=== PATIENT | female | born 1965 | race Caucasian/White ===

== ENCOUNTER → 2016-11-05 | Outpatient (CLI) | payer MEDICAID ==
[~2016-11-05] MED LIST: CYCL1TAB29 PO; GABA800T PO; HYDR-3578 PO; LISI-515 PO; MORP1CAP79 PO; MORP1CAP82 PO; NAPR500 PO; TEGR200T PO; ZOCO40TA PO
[2016-11-05 12:15] LABS: AUTOMATED NEUTROPHIL # 2.2 TH/MM3 (1.8-7.7); EOSINOPHIL % 0.8 % (0.0-4.0); HEMATOCRIT 35.2 % (35.0-46.0); HEMO FLAGS DIFF FINAL; LYMPH % 31.4 % (9.0-44.0); LYMPHOCYTE # 1.3 TH/MM3 (1.0-4.8); MEAN CELL VOLUME 90.5 FL (80.0-100.0); MEAN CORPUSCULAR HEMOGLOBIN 29.5 PG (27.0-34.0); MEAN CORPUSCULAR HGB CONC 32.7 % (32.0-36.0); MONO % 11.3 % (0.0-8.0); NEUT % 55.5 % (16.0-70.0); PLATELET COUNT 255 TH/MM3 (150-450); RED BLOOD COUNT 3.89 MIL/MM3 (4.00-5.30); RED CELL DISTRIBUTION WIDTH 11.6 % (11.6-17.2)
--- NOTE | 2016-11-06 13:39 | EKG ---
Date Performed: 11/05/2016 Time Performed: 11:55:08 PTAGE: 51 years EKG: Sinus rhythm with borderline 1st degree A-V block. Borderline ECG Compared to prior tracing no significant change PREVIOUS TRACING : 05/10/2014 12.31 DOCTOR: Pb Bolton Interpretating Date/Time 11/06/2016 13:35:37
== END ==
LOC: PHPRE 11:04
PROVIDERS: ATTEND Orthopaedic Surgery
DX: Z01.812 Encounter for preprocedural laboratory examination (principal); Z01.810 Encounter for preprocedural cardiovascular examination; M75.121 Complete rotator cuff tear or rupture of right shoulder, not specified as traumatic; R94.31 Abnormal electrocardiogram [ECG] [EKG]
CPT/HCPCS: 36415; 85025; 93005

== ENCOUNTER → 2016-11-12 | Day surgery (SDC) | payer MEDICAID ==
[~2016-11-12] VITALS: Ht 172.7 cm; Wt 91.0 kg
[~2016-11-12] MED LIST changes: +BUPIVACAINE HCL PF 0.5% 30 ML VIAL NERV BLOCK ONE; +BUPIVACAINE/EPINEPHRINE 0.5% PF 30 ML VIAL ONE; +FAMOTIDINE 20 MG/2 ML VIAL ONE; +MIDAZOLAM HCL 5 MG/5 ML VIAL ONE; +MORPHINE SULFATE 8 MG/ML INJ ONE; -NAPR500 PO; +PROPOFOL 200 MG/20 ML AMP IV ONE; +SODIUM CHLOR 0.9% 250 ML INJ 250 ML ONE; +VANCOMYCIN HCL 1000 MG VIAL ONE; +ceFAZolin 2 GM PREMIX 50 ML ONE; +fentaNYL CITRATE 250 MCG/5 ML AMP ONE
[2016-11-12 10:06] VITALS: BP 142/72; PULSE 61; RESP 14; TEMP 97.7; O2SAT 100
[2016-11-12 10:11] VITALS: PULSE 72
[2016-11-12 11:30] VITALS: PULSE 70
[2016-11-12 13:01] VITALS: PULSE 82
[2016-11-12 14:23] VITALS: BP 126/77; PULSE 69; RESP 16; TEMP 97.9; O2SAT 99
--- NOTE | 2016-11-14 19:11 | MP ---
cc: CLINTON MILLER M.D. DATE OF SURGERY November 12, [address] Clinton Miller PREOPERATIVE DIAGNOSIS Rotator cuff tear of the right shoulder. POSTOPERATIVE DIAGNOSIS Rotator cuff tear of the right shoulder. PROCEDURE Anterior decompression right shoulder with excision of coracoacromial ligament and repair of chronic rotator cuff tear. PROCEDURE IN DETAIL The patient was placed on the operating table in the supine position. Adequate general anesthesia was administered by the anesthesiologist. The right shoulder was prepped and draped in usual sterile fashion with the patient in the modified beach-chair position and a pad underlying the right scapula. Care was taken throughout the procedure to allow for only minimal motion of the neck area secondary to previous anterior cervical fusion. The time-out was called and the patient's name, procedure, location, etc. were fully confirmed. A 1-inch incision was made over the right shoulder after infiltrating the subcutaneous tissue with several ccs of 0.5% Marcaine with epi. The wound was taken down to subcutaneous tissues and bleeding points electrocauterized. Deep fascia was incised along with a very large and thickened coracoacromial ligament. The ligament itself appeared to be resulting in severe impingement. After removal of the ligament, we were able to expose the anterior border of the acromial process further by disinserting the deltoid further. We then removed the underlying bursal tissue which was also quite thickened in large in amount. The rotator cuff was now fully visible by rotating the shoulder and we did identify two small tears to the rotator cuff at the level of the supraspinatus. It did appear to be longitudinally torn and we were able to do a [id number] repair on both tears utilizing #2 FiberWire. The patient did have good range of motion now with no additional impingement encountered. We elected not to excise the clavicles and it did not appear to be hypertrophic whatsoever and did not appear to be impinging. The shoulder was then closed, reinserting the deltoid with interrupted sutures of #1 Tycron. The subcutaneous tissue was closed with running 2-0 Vicryl. Skin edges were approximated with subcuticular 4-0 Vicryl followed by Steri-Strips. A sterile dressing was applied and a sling and swath immobilizer placed for postoperative care. Sponge count, needle counts and instrument counts were reportedly correct x2. The estimated blood loss was nil. Procedure was tolerated well and the patient went to the recovery room in satisfactory condition. MD MARIO Sanders/KATHRYN /12:48 PM /6:59 PM
== END | disposition home or self-care (01) ==
LOC: PHSDC 09:16
PROVIDERS: ATTEND Orthopaedic Surgery
DX: M75.121 Complete rotator cuff tear or rupture of right shoulder, not specified as traumatic (principal); I10 Essential (primary) hypertension
CPT/HCPCS: 01610; 23120; 23412; 64415; J0690; J2250; J2270; J3010; J3370; J7050